=== PATIENT | female | born 1950 | race Caucasian/White ===

== ENCOUNTER 2023-11-25 07:06 | Emergency (ER) | payer MEDICARE, MEDICAID ==
[~2023-11-25] VITALS: Ht 172.7 cm; Wt 68.2 kg
[2023-11-25 07:07] VITALS: TEMP 97.4
[2023-11-25] MEDS ORDERED: ADVIL200 MG PO (07:12)
[2023-11-25] MEDS ORDERED: Morphine 10 MG/ML VIAL IM ONE (07:45)
[2023-11-25] MEDS ORDERED: CRUTCHES MC (08:06)
[2023-11-25] MEDS ORDERED: PERCOCET 325 MG1 TA2 PO (08:06)
[2023-11-25 13:25] VITALS: BP 115/67; PULSE 78
--- NOTE | 2023-11-25 16:27 | NUR ---
billet worker recieved a call from the ER stating she needs to meet with patient. SW met with pt who reports she has an ankle fracture and lives on the 3rd floor of an apartment. 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 During the conversation, pt appeared loopy and lost her train of thought. She stated, "I am feeling high." Pt states she has a sister, Greg who lives in [facility]. She reports having a roommate, Mark who is an ex-boyfriend and they both recently moved here for a better financial arrangement. Pt states Mark cannot drive due to not having a license. Pt was educated on [employer] and Uber. SW provided [employer] routes and information on the [employer] breanna. Pt will be seen by PT at 10:30am and will miss the bus, so she will need an Uber home. Pt states she had a contentious argument with Mark before her fall as she was leaving. Pt expressed further conflict, but states it is only verbal/emotional and she feels safe to return home. LACEY spoke with Tomy Adkins and LAURE Hernández who express concerns after PT Forrest saw patient. She lives in a 3rd floor apartment, has no skidder driver, no FWW/crutches ordered, and is unsteady. LACEY spoke with PT Forrest who expressed he does not feel she is safe and would report "Crawling" up the stairs. supervisor baking suggests EMS meet patient at the home. LACEY spoke with Director Luma who observed pt ambulate and transfer safely on her own. She does not meet inpatient criteria and does not have a PCP established to set up Home Health at this time. LACEY completed [facility] DME order and emailed it to [facility]. LACEY spoke with pt who states she will have her roommate assist her while she crawls backwards up her stairs. She reports discussing with her landlord who will work to move her to the bottom level. SW inquired about other family and she states her sister Greg would not be of physical assistance. Pt felt secure going home and was informed of needing an UBER. SW scheduled an Uber for 3:45pm and was informed pt also called her own and had departed. SW left voicemail to sister, greg.
--- NOTE | 2023-12-01 13:20 | NUR ---
emu farm worker recieved a call from sister, Astrid regarding pt being in the hospital on 11/25/23. Astrid said she cannot provide any assistance and did not know what her situation was about the injury. SW provided pt discharged and was able to manage her stairs at that time. Astrid had no further questions and informs SW pt has been using an Uber.
== END 2023-11-25 13:24 | disposition home or self-care (01) ==
LOC: COL.ER 07:06
DX: S82.51XA Displaced fracture of medial malleolus of right tibia, initial encounter for closed fracture (principal); X50.1XXA Overexertion from prolonged static or awkward postures, initial encounter; Y93.01 Activity, walking, marching and hiking
CPT/HCPCS: J2270; L4386